=== PATIENT | female | born 1980 | race Caucasian/White ===

== ENCOUNTER 2019-03-28 11:00 | Emergency (ER) | payer OTHER ==
[~2019-03-28] VITALS: Ht 172.7 cm; Wt 79.4 kg
[2019-03-28 11:00] VITALS: BP 156/87
[~2019-03-28 11:00] MED LIST: BACTRIM DS TAB1 EACH PO; CIPROFLOXACIN500 M1 PO; CLEOCIN HCL300 MG PO; DILANTIN100 MG PO; HYDROCODONE-AP1 EAC6 PO; IBUPROFEN 600600 M1 PO; PERCOCET 5-3251 EACH PO; PRILOSEC40 MG PO; PROMETHAZINE-C120 ML PO; ZANTAC 150MG T150 M1; ZOFRAN4 MG PO; ZPAK PO
[2019-03-28] MEDS ORDERED: NORFLEX100 MG PO (11:38)
[2019-03-28] MEDS ORDERED: MOBIC7.5 MG PO (11:38)
== END 2019-03-28 12:10 | disposition home or self-care (01) ==
LOC: ER 11:00
DX: S29.012A Strain of muscle and tendon of back wall of thorax, initial encounter (principal); F17.210 Nicotine dependence, cigarettes, uncomplicated; X58.XXXA Exposure to other specified factors, initial encounter; Y93.89 Activity, other specified; Y92.89 Other specified places as the place of occurrence of the external cause; Y99.8 Other external cause status